=== PATIENT | male | born 1980 | race Caucasian/White ===

== ENCOUNTER 2017-10-11 14:31 | Emergency (ER) | payer OTHER ==
[2017-10-11 14:38] VITALS: BP 142/79; PULSE 98; RESP 99; TEMP 99; O2SAT 99
--- NOTE | 2017-10-11 14:52 | C.PDOC ---
History Of Present Illness 35 year old male presents to ED asking for HPV testing. He states his tested positive for HPV and blamed him and ended the relationship. Patient states he went to his PCP and had STD test for HIV and syphilis but that he does not have result for HPV. Patient wants to show his the results. Patient denies any dysuria, discharge, warts, sores, rash, pain or other associated complaints. Time Seen by Provider: 10/11/17 14:43 Chief Complaint (Nursing): Male Genitourinary History Per: Patient History/Exam Limitations: no limitations Onset/Duration Of Symptoms: Days Current Symptoms Are (Timing): Still Present Severity: Mild Past Medical History Reviewed: Historical Data, Nursing Documentation, Vital Signs Vital Signs: Last Vital Signs Temp 99.0 F 10/11/17 14:35 Pulse 98 H 10/11/17 14:35 Resp 99 H 10/11/17 14:35 BP 142/79 10/11/17 14:35 Pulse Ox 99 10/11/17 15:37 - Medical History PMH: No Chronic Diseases Family History: States: Unknown Family Hx - Social History Hx Alcohol Use: No Hx Substance Use: No - Immunization History Hx Tetanus Toxoid Vaccination: No Hx Influenza Vaccination: No Hx Pneumococcal Vaccination: No Review Of Systems Except As Marked, All Systems Reviewed And Found Negative. Physical Exam - Physical Exam Appears: Well, Non-toxic, No Acute Distress Skin: Warm, Dry, No Rash Head: Atraumatic, Normacephalic Eye(s): bilateral: Normal Inspection Neck: Normal ROM Chest: Symmetrical Extremity: Bilateral: Atraumatic, Normal ROM Neurological/Psych: Oriented x3, Normal Speech Gait: Steady ED Course And Treatment O2 Sat by Pulse Oximetry: 99 Medical Decision Making Medical Decision Making: Patient requesting testing for HPV. I explained to patient there is no test for men. I educated patient on HPV. He states his will not believe him and he wants a test. I referred patient to the clinic, if he wants STD testing. Disposition Counseled Patient/Family Regarding: Diagnosis, Need For Followup - Disposition Referrals: Nicholas Webster MD, PhD [Staff Provider] - Disposition: HOME/ ROUTINE Disposition Time: 14:49 Condition: GOOD Additional Instructions: There is no test for HPV for men. Please follow up with STD clinic for any further testing and evaluation. Instructions: Safe Sex (ED) Forms: [facility] ([place]ian) - POA Present On Arrival: None - Clinical Impression Clinical Impression: Educational circumstance, Possible exposure to STD
== END 2017-10-11 15:17 | disposition home or self-care (01) ==
LOC: C.ER 14:31
DX: Z20.2 Contact with and (suspected) exposure to infections with a predominantly sexual mode of transmission (principal)